=== PATIENT | male | born 1965 | race African-American/Black ===

== ENCOUNTER 2021-06-21 08:22 | Emergency (ER) | payer BC, OTHER ==
[~2021-06-21] VITALS: Ht 185.4 cm; Wt 103.0 kg
[2021-06-21] MEDS ORDERED: FLUORESCEIN SODIUM 1MG/STRIP LEFTEYE ONE (09:00)
[2021-06-21] MEDS ORDERED: TETRACAINE 0.5% OPHTH DROPS 4ML LEFTEYE ONE (09:00)
[2021-06-21 09:12] VITALS: BP 135/88
[2021-06-21] MEDS ORDERED: OFLO5DRO3 LEFTEYE (09:38)
== END 2021-06-21 09:45 | disposition home or self-care (01) ==
LOC: ER 08:22
DX: S05.02XA Injury of conjunctiva and corneal abrasion without foreign body, left eye, initial encounter (principal); F17.210 Nicotine dependence, cigarettes, uncomplicated; X58.XXXA Exposure to other specified factors, initial encounter; Y93.89 Activity, other specified; Y92.018 Other place in single-family (private) house as the place of occurrence of the external cause
CPT/HCPCS: 99283